=== PATIENT | male | born 1995 | race African-American/Black ===

== ENCOUNTER 2024-08-19 13:35 | Outpatient (CLI) | payer OTHER, SELFPAY | END 2024-08-19 13:36 | disposition home or self-care (01) | LOC: ANHAUDASC 13:38 | PROVIDERS: Visit Provider Otolaryngology | DX: H90.72 Mixed conductive and sensorineural hearing loss, unilateral, left ear, with unrestricted hearing on the contralateral side (principal) | CPT/HCPCS: 92557; 92567 ==